=== PATIENT | female | born 1985 | race African-American/Black ===

== ENCOUNTER 2019-06-26 11:03 | Emergency (ER) | payer OTHER ==
[~2019-06-26] VITALS: Ht 167.6 cm; Wt 70.8 kg
--- OUTSIDE RECORDS SUMMARY | 2019-06-26 11:06 | XMS REPORT ---
Author Author [facility] Organization [facility] Address Unknown Phone Unavailable Care Team Providers Care Tube Carrier Name Role Phone Unavailable Unavailable Payers Payer Name Policy Type Policy Number Effective Date Expiration Date Problems This patient has no known problems. Allergies, Adverse Reactions, Alerts Allergy Name Allergy Type Status Severity Reaction(s) Onset Date Inactive Date Treating Clinician Comments No Known Allergies DA Active U 2019-03-16 00:00:00 Medications This patient has no known medications. Results Test Description Test Time Test Comments Text Results Atomic Results Result Comments - CT ABD PELVIS W/O CONT 2019-03-16 09:36:00 Name: SANDRA ODONNELL [facility] FSED : 1985 Age/S: 33 / F [address] Unit #: [id number] Loc: [address] Phys: oScrates Gordon MD [place], [place] [address] Acct: [id number] Dis Date: Status: REG ER PHONE #: Exam Date: 03/16/2019 0910 FAX #: Reason: history of kidney stones, 07/26 flank pain EXAMS: CPT CODE: [id number] CT ABD PELVIS W/O CONT 52858 HISTORY: Kidney stones and flank pain. COMPARISON: None available. CT abdomen and pelvis: Stone protocol. Automated exposure control. CT of abdomen: Lung bases are clear. The noncontrast liver is unremarkable. Patient is post cholecystectomy. Liver is measuring 19 cm in length. Unremarkable spleen. Patient is post gastric bypass. The gastrojejunostomy is unremarkable. The excluded stomach is unremarkable as well along the distal jejunal/jejunal anastomosis. Unremarkable noncontrast pancreas with unremarkable adrenals. Kidneys are free from hydroureteronephrosis. No calyceal stones on either side. Cortical calcification in the right interpolar location is heterogeneous measuring 6 mm. Faint medullary calcifications as well. No pathologic adenopathy. Unremarkable unopacified abdominal and pelvic vasculature. No bowel obstruction or colitis or diverticulitis or enteritis. CT PELVIS: Appendix is not visible but no inflammatory change. Pelvic bowel loops are unobstructed. Unremarkable uterus with fallopian tube occlusion coils noted bilaterally. Ovaries are poorly visible. Decompressed urinary bladder is limited. No free fluid or free air. No pelvic pathologic adenopathy. Subcutaneous tissues and musculature are normal in appearance. No lytic or blastic lesions are noted within the bony skeleton. IMPRESSION: No hydroureteronephrosis or calyceal stones. Cortical calcification in PAGE 1 Signed Report (CONTINUED) Name: SANDRA ODONNELL [facility] FSED : 1985 Age/S: 33 / F [address] Unit #: [id number] Loc: [address] Phys: Socrates Gordon MD [place], [place] [address] Acct: [id number] Dis Date: Status: REG ER PHONE #: Exam Date: 03/16/2019 09 FAX #: Reason: history of kidney stones, 07/26 flank pain EXAMS: CPT CODE: [id number] CT ABD PELVIS W/O CONT 28698 <Continued> the left interpolar region measured 6 mm. 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 Decompressed urinary bladder is limited. No bowel obstruction or colitis or diverticulitis or enteritis. No free fluid or free air. Appendix is not visible but no inflammatory change. at 0936 Reported and signed by: Matthew Walker M.D. CC: Socrates Gordon MD Technologist:José Grove CTDI: DLP: Trnscb Date/Time: 03/16/2019 (935) [email or web address] Orig Print D/T: S: 03/16/2019 (0939) PAGE 2 Signed Report COMPREHENSIVE METABOLIC PANEL 2019-03-16 09:29:00 SODIUM (test code=NA) 140 mmol/L 128-145 POTASSIUM (test code=K) 4.4 mmol/L 3.5-5.1 CHLORIDE (test code=CL) 104.0 mmol/L 98-107 CARBON DIOXIDE (test code=CO2) 26.2 mmol/L 22-29 ANION GAP (test code=GAP) 14 mmol/L 10-20 GLUCOSE (test code=GLU) 112 mg/dL 70-110 BLOOD UREA NITROGEN (test code=BUN) 11 mg/dL 7-22 CREATININE (test code=CREAT) 0.46 mg/dL 0.55-1.3 BUN/CREATININE RATIO (test code=BUN/CREA) 23.9 10-20 TOTAL PROTEIN (test code=PROT) 7.2 gram/dL 6.1-7.8 ALBUMIN (test code=ALB) 3.7 g/dL 3.3-4.4 GLOBULIN (test code=GLOB) 3.5 G/DL 1-10 ALBUMIN/GLOBULIN RATIO (test code=A/G) 1.1 0.75-1.50 CALCIUM (test code=CA) 8.9 mg/dL 8.0-10.5 BILIRUBIN TOTAL (test code=BILT) 0.30 mg/dL 0.2-1.2 SGOT/AST (test code=AST) 66 U/L 10-39 SGPT/ALT (test code=ALT) 49 U/L 10-69 ALKALINE PHOSPHATASE TOTAL (test code=ALKP) 56 U/L 50-139 CBC W/AUTO [id number] 09:11:00* Test Item Value Reference Range Comments WHITE BLOOD CELL (test code=WBC) 3.2 K/mm3 4.5-12.5 RED BLOOD CELL (test code=RBC) 3.81 mill/mm3 3.7-5.2 HEMOGLOBIN (test code=HGB) 11.4 gram/dL 11.5-15.5 HEMATOCRIT (test code=HCT) 35.4 % 36.0-46.0 MEAN CELL VOLUME (test code=MCV) 92.9 fL 80-98 MEAN CELL HGB (test code=MCH) 29.9 picogram 27.0-33.0 MEAN CELL HGB CONCETRATION (test code=MCHC) 32.2 gram/dL 33.0-36.0 RED CELL DISTRIBUTION WIDTH (test code=RDW) 14.2 % 11.6-16.2 RED CELL DISTRIBUTION WIDTH SD (test code=RDW-SD) 48.3 fL 37.0-51.0 PLATELET COUNT (test code=PLT) 207 K/mm3 150-450 MEAN PLATELET VOLUME (test code=MPV) 9.1 fL 6.7-11.0 NEUTROPHIL % (test code=NT%) 45.7 % 39.0-69.0 LYMPHOCYTE % (test code=LY%) 40.0 % 25.0-55.0 MONOCYTE % (test code=MO%) 8.3 % 0.0-10.0 EOSINOPHIL % (test code=EO%) 5.4 % 0.0-5.0 BASOPHIL % (test code=BA%) 0.3 % 0.0-1.0 NEUTROPHIL # (test code=NT#) 1.44 K/mm3 1.8-7.7 LYMPHOCYTE # (test code=LY#) 1.26 K/mm3 1.0-5.0 MONOCYTE # (test code=MO#) 0.26 K/mm3 0-0.8 EOSINOPHIL # (test code=EO#) 0.17 K/mm3 0.0-0.5 BASOPHIL # (test code=BA#) 0.01 K/mm3 0.0-0.2 MANUAL DIFF REQUIRED (test code=MDIFF) NO URINALYSIS [id number] 08:59:00* Test Item Value Reference Range Comments UA COLOR (test code=COLU) YELLOW YELLOW UA APPEARANCE (test code=APPU) HAZY CLEAR UA GLUCOSE DIPSTICK (test code=DGLUU) NEGATIVE mg/dL NEGATIVE UA BILIRUBIN DIPSTICK (test code=BILU) 1+ (Small 0.5-1.0) NEGATIVE UA KETONE DIPSTICK (test code=KETU) TRACE mg/dL NEGATIVE UA SPECIFIC GRAVITY (test code=SGU) >=1.030 1.001-1.035 UA BLOOD DIPSTICK (test code=DAVID) 3+ (Large) NEGATIVE UA PH DIPSTICK (test code=TUSHAR) 6.5 5.0-8.0 UA PROTEIN DIPSTICK (test code=PROU) 1+ mg/dL Neg-15 UA UROBILINIOGEN DIPSTICK (test code=URO) 1 mg/dL (1+) mg/dL 0.0-0.2 UA NITRITE DIPSTICK (test code=MATTY) NEGATIVE NEGATIVE UA LEUKOCYTE ESTERASE DIPSTICK (test code=LEUU) NEGATIVE uL NEGATIVE UA MICROSCOPIC NEEDED? (test code=UAMICRO) YES UA WBC (test code=WBCU) 0-5 per HPF 0-5 UA RBC (test code=RBCU) 5-10 per HPF 0-5 UA EPITHELIAL CELLS (test code=EPIU) Many (>10/hpf) per HPF Few UA BACTERIA (test code=BACU) FEW per HPF NONE UA MUCUS (test code=MUCU) MANY per LPF NONE-FEW UA AMORPHOUS SEDIMENT (test code=AMORU) FEW per LPF NONE UR HCG [id number] 08:55:00* Test Item Value Reference Range Comments UR HCG QUAL (test code=HCGQLU) NEGATIVE This HCGQL test is NOT applicable for MALE patients.Check with nurse about probable order error.If Tumor Marker Test needed, nurse should order test "HCGTU"(Test #[id number]) URINALYSIS [id number] 08:53:00* Test Item Value Reference Range Comments UA COLOR (test code=COLU) YELLOW YELLOW UA APPEARANCE (test code=APPU) HAZY CLEAR UA GLUCOSE DIPSTICK (test code=DGLUU) NEGATIVE mg/dL NEGATIVE UA BILIRUBIN DIPSTICK (test code=BILU) 1+ (Small 0.5-1.0) NEGATIVE UA KETONE DIPSTICK (test code=KETU) TRACE mg/dL NEGATIVE UA SPECIFIC GRAVITY (test code=SGU) >=1.030 1.001-1.035 UA BLOOD DIPSTICK (test code=DAVID) 3+ (Large) NEGATIVE UA PH DIPSTICK (test code=TUSHAR) 6.5 5.0-8.0 UA PROTEIN DIPSTICK (test code=PROU) 1+ mg/dL Neg-15 UA UROBILINIOGEN DIPSTICK (test code=URO) 1 mg/dL (1+) mg/dL 0.0-0.2 UA NITRITE DIPSTICK (test code=MATTY) NEGATIVE NEGATIVE UA LEUKOCYTE ESTERASE DIPSTICK (test code=LEUU) NEGATIVE uL NEGATIVE UA MICROSCOPIC NEEDED? (test code=UAMICRO) UA WBC (test code=WBCU) per HPF 0-5 UA RBC (test code=RBCU) per HPF 0-5 UA EPITHELIAL CELLS (test code=EPIU) per HPF Few UA BACTERIA (test code=BACU) per HPF NONE URINALYSIS [id number] 08:53:00* Test Item Value Reference Range Comments UA COLOR (test code=COLU) YELLOW YELLOW UA APPEARANCE (test code=APPU) HAZY CLEAR UA GLUCOSE DIPSTICK (test code=DGLUU) NEGATIVE mg/dL NEGATIVE UA BILIRUBIN DIPSTICK (test code=BILU) 1+ (Small 0.5-1.0) NEGATIVE UA KETONE DIPSTICK (test code=KETU) TRACE mg/dL NEGATIVE UA SPECIFIC GRAVITY (test code=SGU) >=1.030 1.001-1.035 UA BLOOD DIPSTICK (test code=DAVID) 3+ (Large) NEGATIVE UA PH DIPSTICK (test code=TUSHAR) 6.5 5.0-8.0 UA PROTEIN DIPSTICK (test code=PROU) 1+ mg/dL Neg-15 UA UROBILINIOGEN DIPSTICK (test code=URO) 1 mg/dL (1+) mg/dL 0.0-0.2 UA NITRITE DIPSTICK (test code=MATTY) NEGATIVE NEGATIVE UA LEUKOCYTE ESTERASE DIPSTICK (test code=LEUU) NEGATIVE uL NEGATIVE UA MICROSCOPIC NEEDED? (test code=UAMICRO) UA WBC (test code=WBCU) per HPF 0-5 UA RBC (test code=RBCU) per HPF 0-5 UA EPITHELIAL CELLS (test code=EPIU) per HPF Few UA BACTERIA (test code=BACU) per HPF NONE
[2019-06-26] MEDS ORDERED: SODIUM CHLORIDE 0.9% 50ML 0 ML ONE (11:31)
[2019-06-26] MEDS ORDERED: IOPAMIDOL 370 MG/ML 200 ML INFUS..BTL INJ ONE (11:31)
[2019-06-26] MEDS ORDERED: SODIUM CHLORIDE 0.9% 1000ML 1,000 ML IV SCH (12:00)
[2019-06-26] MEDS ORDERED: SODIUM CHLORIDE 0.9% 1000ML 1,000 ML ONE (13:05)
[2019-06-26] MEDS ORDERED: ONDANSETRON HCL INJ 2MG/ML 2ML 2 MG/ML VIAL IV STA (13:12)
--- NOTE | 2019-06-26 14:03 | Diagnostic Imaging Report ---
CT of the abdomen and pelvis, without contrast, 06/26/2019. History: Abdominal pain. Hematuria. Comparison: None available. Technique: Multidetector CT scanning of the abdomen and pelvis was performed from the level of the lung bases to the inferior pubic rami without intravenous or oral contrast. Coronal and sagittal multiplanar reformations were obtained. RADIATION DOSE: Total DLP: 787 mGy*cm Dose modulation, iterative reconstruction, and/or weight based adjustment of the mA/kV was utilized to reduce the radiation dose to as low as reasonably achievable. Discussion: Examination is limited without contrast. Lung bases: No visualized abnormalities. Abdomen: A 5 mm calcification is present in the right kidney. There is no evidence of hydronephrosis or perinephric fat stranding. No stones are seen on the left. Cholecystectomy clips are present. Suture material is present in the stomach and proximal small bowel consistent with gastric bypass. The liver, biliary tree, spleen, pancreas, and adrenal glands are unremarkable. The abdominal aorta is within normal limits. There is no bowel dilatation. The appendix is visualized and is normal. There is no evidence of adenopathy or free fluid. Pelvis: The bladder is unremarkable. The uterus and adnexa are absent. There is no evidence of free fluid or adenopathy. Bones and soft tissues: Degenerative changes are present throughout the lumbar spine without evidence of lytic or sclerotic lesion. IMPRESSION: 1. Small nonobstructing right renal calculus. 2. Status post cholecystectomy, gastric bypass, and hysterectomy. Otherwise unremarkable noncontrast exam. Signed by: Eliseo Myers on 06/26/2019 2:00 PM
[2019-06-26] MEDS ORDERED: FAMOTIDINE 20 MG/2 ML VIAL IV STA (14:12)
[2019-06-26] MEDS ORDERED: KETOROLAC TROMETHAMINE 30 MG/ML VIAL IV STA (14:12)
[2019-06-26] MEDS ORDERED: KETOROLAC TROMETHAMINE 30 MG/ML VIAL ONE (14:19)
[2019-06-26] MEDS ORDERED: FAMOTIDINE 20 MG/2 ML VIAL IV ONE (14:19)
--- NOTE | 2019-06-26 15:00 | NUR ---
PT RESTING, VITAL SIGNS STABLE, PT VOICES NO COMPLAINTS AT THIS TIME. FAMILY AT BEDSIDE
[2019-06-26] MEDS ORDERED: CIPRO500 MG PO (15:12)
[2019-06-26] MEDS ORDERED: RANITIDINE HCL150 M1 PO (15:14)
[2019-06-26] MEDS ORDERED: CEFTRIAXONE SOD 1 GM/NS 50 ML 50 ML IV ONE ×2 (15:15→15:27)
[2019-06-26] MEDS ORDERED: KETOROLAC TROME10 MG PO (15:16)
[2019-06-26] MEDS ORDERED: MORPHINE SULFATE INJ 4 MG/ML INJ 1ML IV ONE (15:45)
[2019-06-26] MEDS ORDERED: MORPHINE SULFATE INJ 4 MG/ML INJ 1ML ONE (16:09)
[2019-06-26] MEDS ORDERED: TYLENOL # 31 EA PO (16:32)
== END 2019-06-26 16:47 | disposition home or self-care (01) ==
LOC: FSED 11:03
DX: R10.11 Right upper quadrant pain (principal); R10.13 Epigastric pain; R10.12 Left upper quadrant pain; N20.0 Calculus of kidney; N30.91 Cystitis, unspecified with hematuria; D62 Acute posthemorrhagic anemia; K21.9 Gastro-esophageal reflux disease without esophagitis
CPT/HCPCS: 74176; 80048; 80076; 80307; 81003; 85025; 99284; J0696; J1885; J2270; J2405; J7030; Q9967

== ENCOUNTER 2019-09-09 10:26 | Emergency (ER) | payer OTHER ==
[~2019-09-09] VITALS: Ht 167.6 cm; Wt 68.0 kg
[~2019-09-09 10:26] MED LIST: CIPRO500 MG PO; KETOROLAC TROME10 MG PO; RANITIDINE HCL150 M1 PO; TYLENOL # 31 EA PO
--- NOTE | 2019-09-09 11:57 | Diagnostic Imaging Report ---
EXAMINATION: CXR 2 VIEW - HOPD INDICATION: Upper back pain. COMPARISON: None FINDINGS: TUBES and LINES: None. LUNGS: Lungs are well inflated. There is no evidence of pneumonia or pulmonary edema. PLEURA: No pleural effusion or pneumothorax. HEART AND MEDIASTINUM: The cardiomediastinal silhouette is unremarkable. BONES AND SOFT TISSUES: No acute osseous abnormality. UPPER ABDOMEN: No free air under the diaphragm. There are cholecystectomy clips. IMPRESSION: No acute thoracic abnormality. Signed by: Dr. Tanisha Malave MD on 09/09/2019 11:53 AM
[2019-09-09] MEDS ORDERED: SODIUM CHLORIDE 0.9% 1000ML 1,000 ML ONE (11:58)
[2019-09-09] MEDS ORDERED: ONDANSETRON HCL INJ 2MG/ML 2ML 2 MG/ML VIAL ONE (11:58)
[2019-09-09] MEDS ORDERED: SODIUM CHLORIDE 0.9% 1000ML 1,000 ML IV SCH (12:00)
[2019-09-09] MEDS ORDERED: ONDANSETRON HCL INJ 2MG/ML 2ML 2 MG/ML VIAL IV STA (12:00)
--- NOTE | 2019-09-09 13:02 | NUR ---
PT NEEDS CT WITH CONTRAST, ATTEMPTED TO START IV IN LEFT AC X3 IN RIGHT AC X2 UNABLE TO GET IV, CALLED ANOTHER RN TO ATTEMPT IV START, PT TOLERATED WELL, PT AWARE OF POC, VITAL SIGNS STABLE.
[2019-09-09] MEDS ORDERED: SODIUM CHLORIDE 0.9% 50ML 50 ML ONE (15:07)
[2019-09-09] MEDS ORDERED: IOPAMIDOL 370 MG/ML 200 ML INFUS..BTL INJ ONE (15:07)
[2019-09-09] MEDS ORDERED: KETOROLAC TROMETHAMINE 30 MG/ML VIAL IV STA (15:11)
[2019-09-09] MEDS ORDERED: KETOROLAC TROMETHAMINE 30 MG/ML VIAL ONE (15:17)
--- NOTE | 2019-09-09 15:22 | Diagnostic Imaging Report ---
EXAM: CT Chest WITH contrast- Pulmonary Embolism Protocol INDICATION: Shortness of breath, elevated d-dimer. COMPARISON: Chest radiograph 09/09/2019. TECHNIQUE: Chest was scanned utilizing a multidetector helical scanner from the lung apex through the level of the diaphragm after administration of IV contrast. Thin section reconstructions were obtained with special concentration on the pulmonary arteries. Coronal and sagittal reformations were obtained. Pulmonary embolism protocol was performed. IV CONTRAST: 100 cc of Isovue 370 RADIATION DOSE: Total DLP: 562.9 mGy*cm Dose modulation, iterative reconstruction, and/or weight based adjustment of the mA/kV was utilized to reduce the radiation dose to as low as reasonably achievable. COMPLICATIONS: None FINDINGS: LINES/ TUBES: None. PULMONARY ARTERIES: No filling defect is identified within the pulmonary arteries to the segmental level. The subsegmental pulmonary arteries are not well opacified. Main pulmonary artery measures in diameter. LUNGS AND AIRWAYS: The central airways are patent. No evidence of pneumonia or pulmonary edema. Minimal dependent atelectasis. PLEURA: The pleural spaces are clear. HEART AND MEDIASTINUM: The thyroid gland is normal. No mediastinal, hilar or axillary lymphadenopathy. The heart is normal in size.. There is no pericardial effusion. UPPER ABDOMEN: Limited contrast-enhanced views of the upper abdomen. Status post gastric bypass. Small hiatal hernia. BONES: The visualized bony thorax is within normal limits. SOFT TISSUES: Unremarkable. IMPRESSION: No evidence of pulmonary embolism to the level of the segmental pulmonary arteries. Signed by: Dr. Tansiha Malave MD on 09/09/2019 3:19 PM
[2019-09-09 15:38] VITALS: BP 154/76
== END 2019-09-09 15:45 | disposition home or self-care (01) ==
LOC: FSED 10:26
DX: M54.6 Pain in thoracic spine (principal); M54.5 Low back pain; B34.9 Viral infection, unspecified; F43.10 Post-traumatic stress disorder, unspecified; F41.9 Anxiety disorder, unspecified
CPT/HCPCS: 71046; 71260; 80053; 80076; 81003; 84484; 85025; 85379; 93005; 99284; J1885; J2405; J7030; Q9967